=== PATIENT | female | born 1965 | race Caucasian/White ===

== ENCOUNTER 2016-10-12 21:12 | Observation (INO) | payer OTHER ==
[2016-10-12 22:01] LABS: BASOPHIL 0.9 % (0-2.0); MCH 30.5 pg (25.7-33.7); MEAN CELL VOLUME 92.7 fl (80-96); MEAN PLT VOLUME 8.6 fl (7.5-11.1); NEUTROPHILS 44.4 % (42.8-82.8); PLATELET COUNT 153 K/MM3 (134-434); RDW 14.2 % (11.6-15.6); WHITE BLOOD COUNT 4.9 K/mm3 (4.0-10.0)
[2016-10-12] MEDS ORDERED: ASPIRIN 81 MG CHEWABLE TABLETS PO ONE (22:03)
[2016-10-12] MEDS ORDERED: NITROGLYCERIN SUBLINGUAL 1/150 0.4 MG TAB SL ONE (22:03)
[2016-10-12 22:17] LABS: INR 1.1 (0.82-1.09); PROTHROMBIN TIME (PATIENT) 12.1 SEC (9.98-11.88)
[2016-10-12 22:20] LABS: ACTIVATED PTT 34.1 SECONDS (26.9-34.4)
[2016-10-12] MEDS ORDERED: ASPIRIN 81 MG CHEWABLE TABLETS ONE (22:23)
[2016-10-12] MEDS ORDERED: NITROGLYCERIN SUBLINGUAL 1/150 0.4 MG TAB ONE (22:24)
[2016-10-12 22:27] LABS: ALBUMIN 3.9 g/dl (3.4-5.0); ANION GAP 9 (8-16); CALCIUM 9.3 mg/dL (8.5-10.1); CO2 28 mmol/L (21-32); CREATININE 0.8 mg/dL (0.55-1.02); GLUCOSE,RANDOM 101 mg/dL (74-106); SGOT/AST 29 U/L (15-37); SGPT/ALT 48 U/L (12-78)
[2016-10-12 22:31] LABS: ALK PHOS 94 U/L (45-117); BILIRUBIN,TOTAL 0.6 mg/dL (0.2-1.0); TROPONIN I < 0.02 ng/ml (0.00-0.05)
--- NOTE | 2016-10-12 22:45 | PDOC ---
History of Present Illness - General History Source: Patient Exam Limitations: No Limitations - History of Present Illness Initial Comments: 10/12/16 22:55 The patient is a 51 year old female, with a significant past medical history of HTN and HLD, who presents to the emergency department with chest pain for a week. She describes the pain as a pressure like sensation, localized on the left side of the chest, ranging from mild to moderate, without radiation or modifying factors. She states that her pain was a 10/10 in severity, when she took ASA and S/L Nitro prior to arriving to the ED, lowering her pain to a 8/10 in severity. She denies any radiation but states that walking alleviates the pain. She also reports shortness of breath associated with her chest pain. She notes that she had a similar severe episode 3 weeks ago which resolved on its own. She states that the difference today was that her blood pressure was high, 220/110 prior to arriving to the ED. She notes that she takes 1 baby aspirin a day. She had a stress test in 2012 that was normal and an echo in 2014 that was normal. The patient denies headache and dizziness. Denies fever, chills, nausea, vomit, diarrhea and constipation. Denies dysuria, frequency, urgency and hematuria. Allergies: None Past surgical history: None reported Social history: No alcohol, tobacco or drug use reported PMD - Dr. Cabrera <Tamir Mcintyre - Last Filed: 10/12/16 22:54> - General History Source: Patient, Family Exam Limitations: No Limitations <Chriss Alves - Last Filed: 10/12/16 23:15> - General Chief Complaint: Chest Pain Stated Complaint: CHEST PAIN Time Seen by Provider: 10/12/16 21:25 Past History <Tamir Mcintyre - Last Filed: 10/12/16 22:54> - Past Medical History Anemia: No Asthma: No Cancer: No Cardiac Disorders: No CVA: No COPD: No CHF: No Dementia: No Diabetes: No GI Disorders: No Disorders: No HTN: Yes Hypercholesterolemia: Yes Liver Disease: No Suicide Attempt (Hx): No Seizures: No Thyroid Disease: No - Immunization History Immunization Up to Date: No - Psycho/Social/Smoking Cessation Hx Anxiety: No Suicidal Ideation: No Smoking Status: No Smoking History: Never smoked Number of Cigarettes Smoked Daily: 0 Hx Alcohol Use: No Drug/Substance Use Hx: No Substance Use Type: None Hx Substance Use Treatment: No <Marika Alvesel - Last Filed: 10/12/16 23:15> - Past Medical History Allergies/Adverse Reactions: Allergies Allergy/AdvReac Type Severity Reaction Status Date / Time No Known Allergies Allergy Verified 10/12/16 21:19 Home Medications: Ambulatory Orders Aspirin [ASA -] 81 mg PO DAILY 10/12/16 Lisinopril [Prinivil -] 20 mg PO DAILY 10/12/16 Metoprolol Succinate [Toprol Xl] 50 mg PO DAILY 10/12/16 Nitroglycerin Sublingual [Nitrostat -] 0.4 mg SL ASDIR 10/12/16 Simvastatin [Zocor -] 20 mg PO HS 10/12/16 Review of Systems - Review of Systems Able to Perform ROS?: Yes Comments:: 10/12/16 22:55 GENERAL/CONSTITUTIONAL: No fever or chills. No weakness. HEAD, EYES, EARS, NOSE AND THROAT: No change in vision. No ear pain or discharge. No sore throat. CARDIOVASCULAR: +Chest pain, shortness of breath RESPIRATORY: No cough, wheezing, or hemoptysis. GASTROINTESTINAL: No nausea, vomiting, diarrhea or constipation. GENITOURINARY: No dysuria, frequency, or change in urination. MUSCULOSKELETAL: No joint or muscle swelling or pain. No neck or back pain. SKIN: No rash NEUROLOGIC: No headache, vertigo, loss of consciousness, or change in strength/ sensation. ENDOCRINE: No increased thirst. No abnormal weight change HEMATOLOGIC/LYMPHATIC: No anemia, easy bleeding, or history of blood clots. ALLERGIC/IMMUNOLOGIC: No hives or skin allergy. <Tamir Mcintyre - Last Filed: 10/12/16 22:54> *Physical Exam - Vital Signs Last Vital Signs Temp Pulse Resp BP Pulse Ox 98 F 96 H 18 180/90 98 10/12/16 21:21 10/12/16 21:21 10/12/16 21:21 10/12/16 21:21 10/12/16 21:53 - Physical Exam Comments: 10/12/16 22:55 GENERAL: Awake, alert, and fully oriented, in no acute distress HEAD: No signs of trauma, normocephalic, atraumatic EYES: PERRLA, EOMI, sclera anicteric, conjunctiva clear ENT: Auricles normal inspection, hearing grossly normal, nares patent, oropharynx clear without exudates. Moist mucosa NECK: Normal ROM, supple, no lymphadenopathy, JVD, or masses LUNGS: No distress, speaks full sentences, clear to auscultation bilaterally HEART: Regular rate and rhythm, normal S1 and S2, no murmurs, rubs or gallops, peripheral pulses normal and equal bilaterally. ABDOMEN: Soft, nontender, normoactive bowel sounds. No guarding, no rebound. No masses EXTREMITIES: Normal inspection, Normal range of motion, no edema. No clubbing or cyanosis. NEUROLOGICAL: Cranial nerves II through XII grossly intact. Normal speech, normal gait, no focal sensorimotor deficits SKIN: Warm, Dry, normal turgor, no rashes or lesions noted. <Tamir Mcintyre - Last Filed: 10/12/16 22:54> - Vital Signs Last Vital Signs Temp Pulse Resp BP Pulse Ox 98 F 96 H 18 180/90 98 10/12/16 21:21 10/12/16 21:21 10/12/16 21:21 10/12/16 21:21 10/12/16 21:53 <Chriss Alves - Last Filed: 10/12/16 23:15> Heart Score/ECG Review - History History: Moderately suspicious - Electrocardiogram EKG: Non specific repolarization disturbance - Age Age: 45-65 - Risk Factors Risk Factors Heart Score: Yes Hx Hypercholesterolemia, Yes Hx Hypertension Based on the list above the patient has:: 1-2 risk factors - Troponin Troponin: </= normal limit - Score Heart Score - Total: 4 #1 ECG reviewed & interpreted by me at: 21:25 10/12/16 22:38 NSR 88, left axis deviation, T wave flat III, no std/gu[place], poor R wave progression, QTC 454 msec <Chriss Alves - Last Filed: 10/12/16 23:15> ED Treatment Course - LABORATORY CBC & Chemistry Diagram: 10/12/16 21:50 10/12/16 21:50 - ADDITIONAL ORDERS Additional order review: Laboratory Results 10/12/16 10/12/16 21:50 21:50 INR 1.10 PTT (Actin FS) 34.1 Sodium 142 Potassium 3.8 Chloride 105 Carbon Dioxide 28 Anion Gap 9 BUN 20 H D Creatinine 0.8 D Creat Clearance w eGFR > 60 Random Glucose 101 Calcium 9.3 Total Bilirubin 0.6 D AST 29 D ALT 48 D Alkaline Phosphatase 94 D Creatine Kinase 130 Troponin I < 0.02 B-Natriuretic Peptide 13.91 Total Protein 7.0 Albumin 3.9 10/12/16 21:50 RBC 4.78 MCV 92.7 MCHC 33.0 RDW 14.2 MPV 8.6 Neutrophils % 44.4 D Lymphocytes % 35.9 D Monocytes % 15.8 H Eosinophils % 3.0 Basophils % 0.9 - RADIOLOGY Radiograph Interpretation: 10/12/16 22:54 Chest X-Ray Reviewed by: Dr. Power Bunch Impression: No significant interval change or acute lung disease is present. - Medications Given in the ED: ED Medications Discontinued Medications Generic Name Dose Route Start Last Admin Trade Name Freq PRN Reason Stop Dose Admin Aspirin 162 mg 10/12/16 22:03 10/12/16 22:26 Asa - PO 10/12/16 22:04 162 mg ONCE ONE Administration Nitroglycerin 0.4 mg 10/12/16 22:03 10/12/16 22:26 Nitrostat - SL 10/12/16 22:04 0.4 mg ONCE ONE Administration <Tamir Mcintyre - Last Filed: 10/12/16 22:54> - LABORATORY CBC & Chemistry Diagram: 10/12/16 21:50 10/12/16 21:50 - ADDITIONAL ORDERS Additional order review: Laboratory Results 10/12/16 21:50 INR 1.10 PTT (Actin FS) 34.1 10/12/16 21:50 RBC 4.78 MCV 92.7 MCHC 33.0 RDW 14.2 MPV 8.6 Neutrophils % 44.4 D Lymphocytes % 35.9 D Monocytes % 15.8 H Eosinophils % 3.0 Basophils % 0.9 - RADIOLOGY Radiology Studies Ordered: Category Date Time Status CHEST X-RAY PORTABLE* [RAD] Stat Radiology 10/12/16 21:47 Completed - Medications Given in the ED: ED Medications Discontinued Medications Generic Name Dose Route Start Last Admin Trade Name Freq PRN Reason Stop Dose Admin Aspirin 162 mg 10/12/16 22:03 10/12/16 22:26 Asa - PO 10/12/16 22:04 162 mg ONCE ONE Administration Nitroglycerin 0.4 mg 10/12/16 22:03 10/12/16 22:26 Nitrostat - SL 10/12/16 22:04 0.4 mg ONCE ONE Administration <Chriss Alves - Last Filed: 10/12/16 23:15> Medical Decision Making - Medical Decision Making 10/12/16 22:40 A portion of this note was documented by scribe services under my direction. I have reviewed the details of the note, within reason, and agree with the documentation with the following case summary and management plan written by me. Patient treated in the ED. Nursing notes are reviewed and incorporated into the medical decision-making. Vital signs reviewed. Peripheral IV access obtained by the nurse, laboratory studies are drawn and sent, reviewed and interpreted by myself. Vital Signs Temp Pulse Resp BP Pulse Ox 98 F 96 H 18 180/90 98 10/12/16 21:21 10/12/16 21:21 10/12/16 21:21 10/12/16 21:21 10/12/16 21:53 51 year old female with past medical history of HTN, HLD presents with left sided chest tightness intermittently for 3 weeks. Stated today, she had increasing chest tightness with radiation to left shoulder radiation. Prior chest pains, she had some nausea and vomiting with the chest pain. Not exertional. She taken her husbands nitroglycerin and 81 mg asa and the patient reported moderate relief of symptoms. Stress test 3 years ago, which was negative. Will need to MARIJA. Will give rest of aspirin. ECG, chest xray and admit to the hospital for further evaluation. 10/12/16 23:14 Chest xray reviewed. No acute findings. CBC, BMP 10/12/16 21:50 10/12/16 21:50 CMP Sodium 142 mmol/L (136-145) 10/12/16 21:50 Potassium 3.8 mmol/L (3.5-5.1) 10/12/16 21:50 Chloride 105 mmol/L (98-107) 10/12/16 21:50 Carbon Dioxide 28 mmol/L (21-32) 10/12/16 21:50 Anion Gap 9 (8-16) 10/12/16 21:50 BUN 20 mg/dL (7-18) H D 10/12/16 21:50 Creatinine 0.8 mg/dL (0.55-1.02) D 10/12/16 21:50 Creat Clearance w eGFR > 60 (>60) 10/12/16 21:50 Random Glucose 101 mg/dL (74-106) 10/12/16 21:50 Calcium 9.3 mg/dL (8.5-10.1) 10/12/16 21:50 Total Bilirubin 0.6 mg/dL (0.2-1.0) D 10/12/16 21:50 AST 29 U/L (15-37) D 10/12/16 21:50 ALT 48 U/L (12-78) D 10/12/16 21:50 Alkaline Phosphatase 94 U/L (45-117) D 10/12/16 21:50 Creatine Kinase 130 IU/L (26-192) 10/12/16 21:50 Troponin I < 0.02 ng/ml (0.00-0.05) 10/12/16 21:50 B-Natriuretic Peptide 13.91 pg/ml (5-125) 10/12/16 21:50 Total Protein 7.0 g/dl (6.4-8.2) 10/12/16 21:50 Albumin 3.9 g/dl (3.4-5.0) 10/12/16 21:50 Labs reviewed. Negative troponin. Nitro improved chest pain. Heart score: [address] Mcdonald. She accepts for telemetry observatoin. <Chriss Alves - Last Filed: 10/12/16 23:15> *DC/Admit/Observation/Transfer - Attestations Scribe Attestion: 10/12/16 22:54 Documentation prepared by Tamir Mcintyre, acting as medical staff physician for Chriss Alves MD. <Tamir Mcintyre - Last Filed: 10/12/16 22:54> - Discharge Dispostion Admit: Yes <Chriss Alves - Last Filed: 10/12/16 23:15> Diagnosis at time of Disposition: Chest pain Qualifiers: Chest pain type: unspecified Qualified Code(s): R07.9 - Chest pain, unspecified - Discharge Dispostion Condition at time of disposition: Stable - Referrals Referrals: iGna Cabrera MD [Primary Care Provider] -
--- NOTE | 2016-10-12 23:34 | PN ---
<Apple Rod - Last Filed: 10/13/16 00:25> Teaching Attending Note ATTENDING PHYSICIAN STATEMENT I saw and evaluated the patient. I reviewed the resident's note and discussed the case with the resident. I agree with the resident's findings and plan as documented. SUBJECTIVE: 51 yo F presents with chest pain for 1 week. Patient describes the pain as a left-sided pressure sensation that doesnt radiate. She states that her pain was a 10/10 in severity, when she took ASA and S/L Nitro prior to arriving to the ED, lowering her pain to a 8/10 in severity. Patient also notes associated SOB. She reports having a similar episode 3 weeks ago that resolved itself without medical intervention. She reported to the ED today because her BP was 220/110 prior to arrival. Patient reports she takes 1 baby aspirin daily. PMHx: HTN and HLD OBJECTIVE: Last Vital Signs Temp Pulse Resp BP Pulse Ox 98 F 96 H 18 180/90 98 10/12/16 21:21 10/12/16 21:21 10/12/16 21:21 10/12/16 21:21 10/12/16 21:53 GENERAL: Awake, alert, and fully oriented, in no acute distress HEENT: Atraumatic. PERRLA, EOMI. Moist mucosa. No JVD LUNGS: No distress, speaks full sentences, clear to auscultation bilaterally HEART: Regular rate and rhythm, normal S1 and S2, no murmurs, rubs or gallops, peripheral pulses normal and equal bilaterally. ABDOMEN: Soft, nontender, normoactive bowel sounds. No guarding, no rebound. No masses EXTREMITIES: Normal inspection, Normal range of motion, no edema. No clubbing or cyanosis. NEUROLOGICAL: Cranial nerves II through XII grossly intact. Normal speech, normal gait, no focal sensorimotor deficits SKIN: Warm, Dry, normal turgor, no rashes or lesions noted. CBCD WBC 4.9 K/mm3 (4.0-10.0) D 10/12/16 21:50 RBC 4.78 M/mm3 (3.60-5.2) 10/12/16 21:50 Hgb 14.6 GM/dL (10.7-15.3) D 10/12/16 21:50 Hct 44.3 % (32.4-45.2) D 10/12/16 21:50 MCV 92.7 fl (80-96) 10/12/16 21:50 MCHC 33.0 g/dl (32.0-36.0) 10/12/16 21:50 RDW 14.2 % (11.6-15.6) 10/12/16 21:50 Plt Count 153 K/MM3 (134-434) 10/12/16 21:50 MPV 8.6 fl (7.5-11.1) 10/12/16 21:50 CMP Sodium 142 mmol/L (136-145) 10/12/16 21:50 Potassium 3.8 mmol/L (3.5-5.1) 10/12/16 21:50 Chloride 105 mmol/L (98-107) 10/12/16 21:50 Carbon Dioxide 28 mmol/L (21-32) 10/12/16 21:50 Anion Gap 9 (8-16) 10/12/16 21:50 BUN 20 mg/dL (7-18) H D 10/12/16 21:50 Creatinine 0.8 mg/dL (0.55-1.02) D 10/12/16 21:50 Creat Clearance w eGFR > 60 (>60) 10/12/16 21:50 Calcium 9.3 mg/dL (8.5-10.1) 10/12/16 21:50 Total Bilirubin 0.6 mg/dL (0.2-1.0) D 10/12/16 21:50 AST 29 U/L (15-37) D 10/12/16 21:50 ALT 48 U/L (12-78) D 10/12/16 21:50 Alkaline Phosphatase 94 U/L (45-117) D 10/12/16 21:50 Total Protein 7.0 g/dl (6.4-8.2) 10/12/16 21:50 Albumin 3.9 g/dl (3.4-5.0) 10/12/16 21:50 ASSESSMENT AND PLAN: 51 yo F with a PMHx of HTN and HLD presents with chest pain r/o ACS, most likely unstable angina. 1.) Chest pain r/o ACS. Most likely unstable angina -Toprol 50 mg BID -Echo in AM -Stress test in AM -Cardiology consult -Lipid panel -Nitro sl PRN -Domenic score 2 2.) HTN -Question hypertensive urgency -Labetalol if BP over 200 DVT ppx -SCDs Documentation prepared by Apple Rod, acting as electromedical equipment technician for Mae Mcdonald M.D. <Mae Mcdonald - Last Filed: 10/15/16 00:08> Teaching Attending Note Name of Resident: Jess Glaser
[2016-10-13] MEDS ORDERED: NITROGLYCERIN SUBLINGUAL 1/150 0.4 MG TAB SL PRN (00:15)
--- NOTE | 2016-10-13 00:41 | HP ---
CHIEF COMPLAINT: Chest pain x 1 week PCP: Dr. Rick Adler HISTORY OF PRESENT ILLNESS: History obtained from patient and her daughter 51 year old Ukranian speaking female presented to the ED accompanied by her daughter with chief complaints of chest pain x 1 week. A/c to the patient, chest pain started a week ago, gradually progressing to worse, located on the left side, initially 4/10-->8/10 in intensity, squeezing and pressure type, radiating towards her back in between scapula, associated with nausea and SOB but no vomiting. Denies cough, palpitation. Chest pain aggravates when her plood pressure rises. Yesterday, BP at home was 220/110mmHg, she took Metoprolol 100mg, Nitroglycerine sublingual which decreased the intensity of chest pain and decreased BP. This morning BP at home was 180/90mmHg. With the rise of BP, patient also gets hematoma on her limbs. Also reports to have headache in the occipital area, aggravates when BP rises and is relieved when BP normalizes. Denies blurring of vision, loc, numbness or tingling sensation. Daughter mentions patient visited to the ED in the past for Hypertension but was never hospitalized. Patient reports to have similar episodes in the 1wk of September,, had severe chest pain lasting for about 10-15mins at rest with shortness of breath. Patient didn't seek any medical attention since it resolved at that time. But since then, patient has had chest pain on/off. Daughter mentions patient had holter done 5 yrs ago, echo and stress test done 3 years ago and it was normal. Denies abdominal pain. Bowel/Bladder Normal. Sleep/Appetite Normal. ER course was notable for: (1) CBC, CMP, Troponin x 1 negative (2) EKG (3) Sublingual nitroglycerine, Aspirin 162mg Recent Travel: None PAST MEDICAL HISTORY: Hypertension (Diagnosed 5 yrs ago , Hyperlipidemia) PAST SURGICAL HISTORY: Hysterectomy 3 yrs ago Social History: Smoking: Never smoked Alcohol: Occasional Drugs: No drug use. Family History: Unknown Allergies No Known Allergies Allergy (Verified 10/12/16 21:19) HOME MEDICATIONS: Medication Instructions Recorded Aspirin [ASA -] 81 mg PO DAILY 10/12/16 Lisinopril [Prinivil -] 20 mg PO DAILY 10/12/16 Metoprolol Succinate [Toprol Xl] 50 mg PO DAILY 10/12/16 Nitroglycerin Sublingual 0.4 mg SL ASDIR 10/12/16 [Nitrostat -] Simvastatin [Zocor -] 20 mg PO HS 10/12/16 REVIEW OF SYSTEMS CONSTITUTIONAL: Absent: fever, chills, diaphoresis, generalized weakness, malaise, loss of appetite, weight change HEENT: Absent: rhinorrhea, nasal congestion, throat pain, throat swelling, difficulty swallowing, mouth swelling, ear pain, eye pain, visual changes CARDIOVASCULAR: Present: chest pain Absent: , syncope, palpitations, irregular heart rate, lightheadedness, peripheral edema RESPIRATORY: Absent: cough, shortness of breath, dyspnea with exertion, orthopnea, wheezing, stridor, hemoptysis GASTROINTESTINAL: Absent: abdominal pain, abdominal distension, nausea, vomiting, diarrhea, constipation, melena, hematochezia GENITOURINARY: Absent: dysuria, frequency, urgency, hesitancy, hematuria, flank pain, genital pain MUSCULOSKELETAL: Absent: myalgia, arthralgia, joint swelling, back pain, neck pain SKIN: Absent: rash, itching, pallor HEMATOLOGIC/IMMUNOLOGIC: Absent: easy bleeding, easy bruising, lymphadenopathy, frequent infections ENDOCRINE: Absent: unexplained weight gain, unexplained weight loss, heat intolerance, cold intolerance NEUROLOGIC: Present: headache Absent:focal weakness or paresthesias, dizziness, unsteady gait, seizure, mental status changes, bladder or bowel incontinence PSYCHIATRIC: Absent: anxiety, depression, suicidal or homicidal ideation, hallucinations. PHYSICAL EXAMINATION Vital Signs - 24 hr 10/12/16 10/12/16 21:21 21:53 Temperature 98 F Pulse Rate 96 H Respiratory 18 Rate Blood Pressure 180/90 O2 Sat by Pulse 98 98 Oximetry (%) GENERAL: Patient lying comforbly in bed, Awake, alert, and fully oriented, in no acute distress. HEAD: Normal with no signs of trauma. EYES: EOM intact, no pallor or icterus. EARS, NOSE, THROAT: Ears normal. Moist mucous membranes. NECK: Supple LUNGS: Breath sounds equal, clear to auscultation bilaterally. No wheezes, and no crackles. No accessory muscle use. HEART: Regular rate and rhythm, normal S1 and S2 without murmur, rub or gallop. ABDOMEN: Soft, nontender, not distended, normoactive bowel sounds, no guarding, no rebound, no masses. No hepatomegaly or splenomegaly. MUSCULOSKELETAL: Normal range of motion at all joints. No bony deformities or tenderness. No CVA tenderness. UPPER EXTREMITIES: 2+ pulses, warm, well-perfused. No cyanosis. No clubbing. Cap refill <2 seconds. No peripheral edema. LOWER EXTREMITIES: 2+ pulses, warm, well-perfused. No calf tenderness. No peripheral edema. NEUROLOGICAL: Cranial nerves II-XII intact. Normal speech. Gait not observed. PSYCHIATRIC: Cooperative. Good eye contact. Appropriate mood and affect. SKIN: Warm, dry, normal turgor, no rashes or lesions noted. Laboratory Results - last 24 hr 10/12/16 10/12/16 10/12/16 21:50 21:50 21:50 WBC 4.9 D RBC 4.78 Hgb 14.6 D Hct 44.3 D MCV 92.7 MCHC 33.0 RDW 14.2 Plt Count 153 MPV 8.6 Neutrophils % 44.4 D Lymphocytes % 35.9 D Monocytes % 15.8 H Eosinophils % 3.0 Basophils % 0.9 INR 1.10 PTT (Actin FS) 34.1 Sodium 142 Potassium 3.8 Chloride 105 Carbon Dioxide 28 Anion Gap 9 BUN 20 H D Creatinine 0.8 D Creat Clearance w eGFR > 60 Random Glucose 101 Calcium 9.3 Total Bilirubin 0.6 D AST 29 D ALT 48 D Alkaline Phosphatase 94 D Creatine Kinase 130 Troponin I < 0.02 B-Natriuretic Peptide 13.91 Total Protein 7.0 Albumin 3.9 ASSESSMENT/PLAN: 51 year old Ukranian speaking female with past medical history of Hypertension ( Diagnosed 5 yrs ago , Hyperlipidemia) presented to the ED accompanied by her daughter with chief complaints of chest pain x 1 week. Admitted in Tele # Chest pain: Most likely unstable angina. R/O ACS Patient presented in the ED with severe chest pain at rest, 8/10 in intensity , radiating towards her scapula, squeezing type Troponin x 1 negative, EKG: NSR 88, left axis deviation, T wave flat III, no std/[place], poor R wave progression, QTC 454 msec HEART score 2 (age, risk factor) FERMÍN score 2 (severe angina peisodes in 24 hrs, aspirin use in past 7 days) In the ED, patient was given Sublingual nitroglycerine, Aspirin 162mg. Chest pain improving 8/10---->12/19 Second set of cardiac enzyme ordered at 3am Continuous cardiac monitoring in tele Continue Aspirin 81mg Sublingual nitroglycerine PRN upto 3 doses Cardiology consult placed Echo, stress test, EKG ordered for tomorrow # Hypertensive urgency 2 reading of High BP at home 220/110 which decreased to 180/90 after taking 100mg PO Metoprolol On admission, BP 180/92mmHg now decreasing Continue Metoprolol 50mg BID Lisinopril 20mg Daily Statin 20mg Daily Lipid panel and HbA1c ordered # FEN IV fluids @ 42mls/hr Electrolytes to be repeated this am NPO except PO meds for possible stress test tomorrow # Prophylaxis For GI- Not indicated For DVT- Heparin sq # Code Status- Full code # Dispo: Admitted in Tele. Duration of stay unknown Illness, Investigation and Plan of care explained to the patient and her daughter Ms. Parham. They verbalized understanding. Will discuss with Dr. Mcdonald. Visit type - Emergency Visit Emergency Visit: Yes ED Registration Date: 10/12/16 Care time: The patient presented to the Emergency Department on the above date and was hospitalized for further evaluation of their emergent condition. - New Patient This patient is new to me today: Yes Date on this admission: 10/13/16 - Critical Care Critical Care patient: No
[2016-10-13] MEDS ORDERED: SODIUM CHLORIDE 1,000 ML IV SCH (01:15)
[2016-10-13 01:45] VITALS: BMI 26.3
[2016-10-13 02:23] LABS: TROPONIN I < 0.02 ng/ml (0.00-0.05)
[2016-10-13] MEDS: HEPARIN NA (PORCINE) 5,000 UNITS/ML 1ML VIAL SQ SCH ×2 (06:03→13:30)
[2016-10-13 06:16] LABS: MCH 30.8 pg (25.7-33.7); MCHC 33.2 g/dl (32.0-36.0); MEAN CELL VOLUME 92.8 fl (80-96); PLATELET COUNT 157 K/MM3 (134-434); RDW 13.8 % (11.6-15.6); WHITE BLOOD COUNT 4.9 K/mm3 (4.0-10.0)
[2016-10-13 06:38] LABS: ALBUMIN 3.7 g/dl (3.4-5.0); ANION GAP 8 (8-16); CALCIUM 8.7 mg/dL (8.5-10.1); CO2 30 mmol/L (21-32); GLUCOSE,RANDOM 83 mg/dL (74-106)
[2016-10-13 06:41] LABS: ALK PHOS 75 U/L (45-117); BILIRUBIN,TOTAL 0.8 mg/dL (0.2-1.0); CHOLESTEROL 163 mg/dL (50-200); CREATININE 0.7 mg/dL (0.55-1.02); SGOT/AST 24 U/L (15-37); SGPT/ALT 40 U/L (12-78); TOT PROT 6.6 g/dl (6.4-8.2)
--- NOTE | 2016-10-13 08:44 | PN ---
Progress Note (short form) - Note Progress Note: Cardiology Consult Dictated Multiple RF (HTN/ HL) Atypical Chest pain REC: ASA Echo Stress MIBI Further reccs pending above diagnostics BP control
--- NOTE | 2016-10-13 09:22 | CONS ---
CARDIOLOGY CONSULTATION DATE OF CONSULTATION: DATE OF DICTATION: 10/13/2016 REQUESTED BY: Zi Joe MD HISTORY OF PRESENT ILLNESS: The patient is a 51-year-old female with a past medical history of hypertension, hyperlipidemia status post hysterectomy who presents to the emergency room for an episode of substernal chest pressure, which occurred at rest. She describes as tightness radiating diffusely across the precordium with some associated shortness of breath. No palpitations, no nausea/vomiting or diaphoresis. Her pain occurred at rest yesterday and was similar to an episode she experienced earlier in August at which time she did not seek medical attention. She attributed to anxiety. She denies any exertional symptoms. No exertional chest pain. In fact, she states that she feels better when she exercises. She denies cough, fever, chills. She denies any recent travel. Oxygenation is normal on room air. PAST MEDICAL HISTORY: Her past medical history is significant for hyperlipidemia and hypertension. ALLERGIES: She has no known drug allergies. MEDICATIONS AT HOME: 1. Zocor 20 MG q h.s. 2. Toprol XL 50 mg daily. 3. Lisinopril 20 mg daily. 4. Aspirin 81 mg daily. FAMILY HISTORY: No early coronary disease or sudden cardiac . SOCIAL HISTORY: Non-smoker, works as a housekeeper caregiver. PHYSICAL EXAMINATION: General: Comfortable, in no acute distress. Vital signs: Temperature 98 Fahrenheit, pulse 71/regular. Telemetry has shown sinus rhythm. Initial blood pressure was 180/90, now 114/60. 98% on room air. HEENT: 2+ carotid pulses, no bruits. Heart: S1, S2/regular. No murmurs. Lungs: Chest to auscultation. Abdomen: Soft, nontender. No aortic enlargement. Extremities: Warm with no pitting edema. EKG: Normal sinus rhythm, 72 beats per minute. Leftward axis. Otherwise no acute changes. RADIOGRAPHIC FINDINGS: Chest x-ray was performed, showed no acute lung disease. ASSESSMENT: Multiple risk factors including hypertension and hyperlipidemia with atypical chest pain. RECOMMENDATION: 1. Third cardiac enzyme. 2. Continue aspirin. 3. Blood pressure control. 4. Echocardiogram for assessment of LV function. 5. Nuclear stress test today. 6. Recommendations to follow above diagnostics. Thank you for this consultation. BRENNON KHAN M.D. ERICK/[id number] cc: Zi Joe MD
[2016-10-13 09:30] LABS: TROPONIN I < 0.02 ng/ml (0.00-0.05)
[2016-10-13] MEDS ORDERED: INFLUENZA VACCINE 45 MCG/0.5 ML (MDV 16-17) IM ONE (10:00)
[2016-10-13] MEDS ORDERED: METOPROLOL SUCCINATE 50 MG TAB.SR.24H (FP) PO SCH ×2 (10:00)
[2016-10-13] MEDS ORDERED: ASPIRIN 81 MG CHEWABLE TABLETS PO SCH (10:00)
[2016-10-13] MEDS ORDERED: LISINOPRIL 20 MG TABLET (FP) PO SCH (10:00)
[2016-10-13 14:40] VITALS: BP 105/57; PULSE 78; TEMP 98.4
--- NOTE | 2016-10-13 14:42 | PN ---
Teaching Attending Note Name of Resident: Angela Bernabe ATTENDING PHYSICIAN STATEMENT I saw and evaluated the patient. I reviewed the resident's note and discussed the case with the resident. I agree with the resident's findings and plan as documented. SUBJECTIVE: Patient denies having any chest pain, no shortness of breath, had an stress test done. OBJECTIVE: Vital Signs Temperature 98.4 F 10/13/16 13:00 Pulse Rate 78 10/13/16 13:00 Respiratory Rate 16 10/13/16 13:00 Blood Pressure 105/57 10/13/16 13:00 O2 Sat by Pulse Oximetry (%) 98 10/13/16 07:43 GENERAL: Patient lying comforbly in bed, Awake, alert, and fully oriented, in no acute distress. HEAD: Normal with no signs of trauma. EYES: EOM intact, no pallor or icterus. EARS, NOSE, THROAT: Ears normal. Moist mucous membranes. NECK: Supple, no JVD LUNGS: Breath sounds equal, clear to auscultation bilaterally. No wheezes, and no crackles. No accessory muscle use. HEART: Regular rate and rhythm, normal S1 and S2 without murmur, rub or gallop. ABDOMEN: Soft, nontender, not distended, normoactive bowel sounds, no guarding, no rebound, no masses. No hepatomegaly or splenomegaly. MUSCULOSKELETAL: Normal range of motion at all joints. No bony deformities or tenderness. No CVA tenderness. EXTREMITIES: 2+ pulses, warm, well-perfused. No calf tenderness. No peripheral edema. NEUROLOGICAL: Cranial nerves II-XII intact. Normal speech. Gait not observed. PSYCHIATRIC: Cooperative. Good eye contact. Appropriate mood and affect. SKIN: Warm, dry, normal turgor, no rashes or lesions noted. CBCD WBC 4.9 K/mm3 (4.0-10.0) 10/13/16 05:20 RBC 4.67 M/mm3 (3.60-5.2) 10/13/16 05:20 Hgb 14.4 GM/dL (10.7-15.3) 10/13/16 05:20 Hct 43.4 % (32.4-45.2) 10/13/16 05:20 MCV 92.8 fl (80-96) 10/13/16 05:20 MCHC 33.2 g/dl (32.0-36.0) 10/13/16 05:20 RDW 13.8 % (11.6-15.6) 10/13/16 05:20 Plt Count 157 K/MM3 (134-434) 10/13/16 05:20 MPV 9.0 fl (7.5-11.1) 10/13/16 05:20 CMP Sodium 142 mmol/L (136-145) 10/13/16 05:20 Potassium 4.1 mmol/L (3.5-5.1) 10/13/16 05:20 Chloride 104 mmol/L (98-107) 10/13/16 05:20 Carbon Dioxide 30 mmol/L (21-32) 10/13/16 05:20 Anion Gap 8 (8-16) 10/13/16 05:20 BUN 20 mg/dL (7-18) H 10/13/16 05:20 Creatinine 0.7 mg/dL (0.55-1.02) 10/13/16 05:20 Creat Clearance w eGFR > 60 (>60) 10/13/16 05:20 Random Glucose 83 mg/dL (74-106) 10/13/16 05:20 Calcium 8.7 mg/dL (8.5-10.1) 10/13/16 05:20 Total Bilirubin 0.8 mg/dL (0.2-1.0) D 10/13/16 05:20 AST 24 U/L (15-37) 10/13/16 05:20 ALT 40 U/L (12-78) 10/13/16 05:20 Alkaline Phosphatase 75 U/L (45-117) D 10/13/16 05:20 Total Protein 6.6 g/dl (6.4-8.2) 10/13/16 05:20 Albumin 3.7 g/dl (3.4-5.0) 10/13/16 05:20 CARDIAC ENZYMES Creatine Kinase 101 IU/L (26-192) 10/13/16 05:20 Troponin I < 0.02 ng/ml (0.00-0.05) 10/13/16 05:20 Current Medications Generic Name Dose Route Start Last Admin Trade Name Freq PRN Reason Stop Dose Admin Aspirin 81 mg 10/13/16 10:00 10/13/16 13:29 Asa - PO 81 mg DAILY SACHI Administration Atorvastatin Calcium 10 mg 10/13/16 22:00 Lipitor - PO HS [facility] Heparin Sodium (Porcine) 5,000 unit 10/13/16 06:00 10/13/16 13:30 Heparin - SQ 5,000 unit TID SACHI Administration Sodium Chloride 1,000 mls @ 42 mls/hr 10/13/16 01:15 10/13/16 01:25 Normal Saline - IV 42 mls/hr ASDIR SACHI Administration Lisinopril 20 mg 10/13/16 10:00 10/13/16 13:29 Prinivil PO 20 mg DAILY SACHI Administration Metoprolol Succinate 50 mg 10/13/16 10:00 10/13/16 13:29 Toprol Xl - PO 50 mg BID SACHI Administration Nitroglycerin 0.4 mg 10/13/16 00:15 Nitrostat - SL Q5M PRN FOR CHEST PAIN Medication Instructions Recorded Aspirin [ASA -] 81 mg PO DAILY 10/12/16 Lisinopril [Prinivil -] 20 mg PO DAILY 10/12/16 Metoprolol Succinate [Toprol Xl] 50 mg PO DAILY 10/12/16 Nitroglycerin Sublingual 0.4 mg SL ASDIR 10/12/16 [Nitrostat -] Simvastatin [Zocor -] 20 mg PO HS 10/12/16 ASSESSMENT AND PLAN: Patient is a 51 yo F with a PMHx of HTN and HLD presented to ED. with Acute chest pain . # Acute chest pain ; MO was rulled out by 3 sets of trop.negative , stress test neg.Echo is unremarkable. Patient will be discharged on -Toprol 50 mg BID, lisinopril 20mg po daily, aspirin. #Acute hypertensive Emergency now back to normal, increased torpol to 2x per day ,continue Lisinopril and patient is on Hctz at home continue, also patient was asked to follow up with Primary care doctor closely on every 2 weeks period to have to monitor bp closely Echo and stress test is negative. will discharge the patient home, discussed with , will follow up within in 2 weeks follow up with Primary care within a week no added sodium in the diet to have better control of Blood pressure..
--- NOTE | 2016-10-13 16:17 | DS ---
Physical Exam: SUBJECTIVE: Patient seen and examined. She is feeling good. Denies chest pain, palpitations, SOB, cough, headache, N/V, LOC, dizziness, vision problems. OBJECTIVE: Vital Signs Period Temp Pulse Resp BP Sys/Drummond Pulse Ox Last 24 Hr 98.4 F 70-87 12-18 105-146/56-84 98-98 PHYSICAL EXAM GENERAL: The patient is awake, alert, and fully oriented, in no acute distress. HEAD: Normal with no signs of trauma. EYES: extraocular movements intact, sclera anicteric, conjunctiva clear. ENT: oropharynx clear without exudates, moist mucous membranes. NECK: Trachea midline, full range of motion, supple. LUNGS: Breath sounds equal, clear to auscultation bilaterally, no wheezes, no crackles, no accessory muscle use. HEART: Regular rate and rhythm, S1, S2 without murmur, rub or gallop. ABDOMEN: Soft, nontender, nondistended, normoactive bowel sounds, no guarding, no rebound, no hepatosplenomegaly, no masses. EXTREMITIES: 2+ pulses, warm, well-perfused, no edema. NEUROLOGICAL: Normal speech, gait not observed. PSYCH: Normal mood, normal affect. SKIN: Warm, dry, normal turgor, no rashes or lesions noted. LABS Laboratory Results - last 24 hr 10/13/16 10/13/16 10/13/16 01:50 05:20 05:20 WBC 4.9 RBC 4.67 Hgb 14.4 Hct 43.4 MCV 92.8 MCHC 33.2 RDW 13.8 Plt Count 157 MPV 9.0 Sodium 142 Potassium 4.1 Chloride 104 Carbon Dioxide 30 Anion Gap 8 BUN 20 H Creatinine 0.7 Creat Clearance w eGFR > 60 Random Glucose 83 Hemoglobin A1c % Calcium 8.7 Total Bilirubin 0.8 D AST 24 ALT 40 Alkaline Phosphatase 75 D Creatine Kinase 112 101 Troponin I < 0.02 < 0.02 Total Protein 6.6 Albumin 3.7 Cholesterol 163 10/13/16 10/13/16 05:20 08:45 WBC RBC Hgb Hct MCV MCHC RDW Plt Count MPV Sodium Potassium Chloride Carbon Dioxide Anion Gap BUN Creatinine Creat Clearance w eGFR Random Glucose Hemoglobin A1c % 5.3 Calcium Total Bilirubin AST ALT Alkaline Phosphatase Creatine Kinase Cancelled Troponin I Cancelled Total Protein Albumin Cholesterol HOSPITAL COURSE: Date of Admission:10/12/16 Date of Discharge: 10/13/16 Minutes to complete discharge: 50 Discharge Summary Reason For Visit: CHEST PAIN Current Active Problems Chest pain (Acute) Hospital Course: 51 year old female with past medical history of Hypertension and HDL presented to the ED accompanied by her daughter with chief complaints of chest pain x 1 week. The pain is localized in left chest, pressure like, radiation to back and scapula. It is intermittent, lasts seconds and is 8/10-4/10 in severity. The pain is always associated with elevated BP. She measured that at home and it was 220/110. She states that her blood pressure is elevated for a month. Hospital course; We placed the pt in observation to r/o ACS. She was seen by [facility]. Her troponins were negative x3, ECHO didn't show any acute pathology, EKG: NSR 88, left axis deviation, T wave flat III, no std/[place], poor R wave progression, QTC 454 msec, MIBI test was nl, continuous cardiac monitoring didn't show any acute events, her BP normalized. the pt was given Metoprolol, Lisinopril, ASA, NTG and IVF. She didn't have any more episodes of chest pain in the hospital. She was discharged with recommendation to see her PCP in a week and [facility] as outpatient. Condition: Good - Instructions Diet, Activity, Other Instructions: Please take your medications everyday. We recommend to take Metoprolol two times a day. No other medication changes. Please see your primary care doctor and Dr. Michael in a week. If you have chest pain, palpitations, SOB, dizziness, loss of consciousness come to Emergency Room as soon as possible. Referrals: Sg Michael MD [Staff Physician] - Gina Cabrera MD [Primary Care Provider] - Disposition: HOME - Home Medications Comprehensive Discharge Medication List: Ambulatory Orders Aspirin [ASA -] 81 mg PO DAILY 10/12/16 Lisinopril [Prinivil -] 20 mg PO DAILY 10/12/16 Nitroglycerin Sublingual [Nitrostat -] 0.4 mg SL ASDIR 10/12/16 Simvastatin [Zocor -] 20 mg PO HS 10/12/16 Hydrochlorothiazide [Hctz -] 25 mg PO DAILY 10/13/16 Metoprolol Succinate [Toprol XL -] 50 mg PO BID #60 tab.sr.24h 10/13/16 Problem List - Problems (1) Chest pain Code(s): R07.9 - CHEST PAIN, UNSPECIFIED Qualifiers: Chest pain type: unspecified Qualified Code(s): R07.9 - Chest pain, unspecified (2) Hypertension Code(s): I10 - ESSENTIAL (PRIMARY) HYPERTENSION (3) Hyperlipidemia Code(s): E78.5 - HYPERLIPIDEMIA, UNSPECIFIED This patient is new to me today: Yes Date on this admission: 10/13/16 Emergency Visit: Yes ED Registration Date: 10/12/16 Care time: The patient presented to the Emergency Department on the above date and was hospitalized for further evaluation of their emergent condition. Critical Care patient: No - Discharge Referral Referred to [facility] Med P.C.: No
--- NOTE | 2016-10-13 17:26 | EKG ---
Test Reason : Blood Pressure : / mmHG Vent. Rate : 067 BPM Atrial Rate : 067 BPM P-R Int : 170 ms QRS Dur : 074 ms QT Int : 432 ms P-R-T Axes : 033 -30 013 degrees QTc Int : 456 ms POOR DATA QUALITY, INTERPRETATION MAY BE ADVERSELY AFFECTED NORMAL SINUS RHYTHM LEFT AXIS DEVIATION ABNORMAL ECG WHEN COMPARED WITH ECG OF 12-OCT-2016 21:21, NO SIGNIFICANT CHANGE WAS FOUND Confirmed by MABEL RUTH, KAM ([id number]) on 10/13/2016 5:26:11 PM Referred By: Confirmed By:KAM MONROE MD
--- NOTE | 2016-10-13 17:33 | EKG ---
Test Reason : Blood Pressure : / mmHG Vent. Rate : 088 BPM Atrial Rate : 088 BPM P-R Int : 156 ms QRS Dur : 080 ms QT Int : 376 ms P-R-T Axes : 050 -52 030 degrees QTc Int : 454 ms NORMAL SINUS RHYTHM LEFT AXIS DEVIATION LOW VOLTAGE QRS ABNORMAL ECG WHEN COMPARED WITH ECG OF 22-JUL-2014 20:00, T WAVE AMPLITUDE HAS DECREASED IN ANTERIOR LEADS Confirmed by KAM MONROE MD ([id number]) on 10/13/2016 5:33:03 PM Referred By: Confirmed By:KAM MONROE MD
[2016-10-13] MEDS ORDERED: ATORVASTATIN CA 10 MG TABLET (FP) PO SCH (22:00)
== END 2016-10-13 16:30 | disposition home or self-care (01) ==
LOC: JER 21:12 → JICU 23:58
PROVIDERS: ADMIT Internal Medicine; ATTEND Internal Medicine
DX: R07.89 Other chest pain (principal); E78.5 Hyperlipidemia, unspecified; I16.0 Hypertensive urgency
CPT/HCPCS: 36415; 71010-TC; 78452-TC; 80053; 82465; 82550; 83036; 83880; 84484; 85025; 85027; 85610; 85730; 93005; 93010; 93017; 93306-TC; 99284-25; A9502; C1887; G0378; J1644; Q2037

== ENCOUNTER 2024-02-17 21:46 | Emergency (ER) | payer OTHER ==
[2024-02-17 21:54] VITALS: BP 130/83; PULSE 87; RESP 19; TEMP 98.6; BMI 26.6
[2024-02-17] MEDS ORDERED: LOPERAMIDE HCL 2 MG CAPSULE ONE (23:16)
[2024-02-17] MEDS: LOPERAMIDE HCL 2 MG CAPSULE PO ONE (23:20)
[2024-02-17] MEDS: SODIUM CHLORIDE 1,000 ML IV STA (23:20)
[2024-02-17 23:25] LABS: BASO % 0.2 % (0-2.0); EOS % 0.9 % (0-4.5); HEMATOCRIT 40.7 % (32.4-45.2); HEMOGLOBIN 13.9 GM/dL (10.7-15.3); LYMPH % 7.5 % (8-40); MCH 30.9 pg (25.7-33.7); MCHC 34.2 g/dl (32.0-36.0); MEAN CELL VOLUME 90.2 fl (80-96); MEAN PLT VOLUME 8.1 fl (7.5-11.1); MONO % 8.4 % (3.8-10.2); PLATELET COUNT 164 10^3/uL (134-434); RBC 4.51 M/mm3 (3.60-5.2); RDW 14.5 % (11.6-15.6); WHITE BLOOD COUNT 6.2 K/mm3 (4.0-10.0)
[2024-02-17 23:48] LABS: POTASSIUM 3.7 mmol/L (3.5-5.1)
[2024-02-17 23:50] LABS: CALCIUM 8.2 mg/dL (8.5-10.1)
[2024-02-17 23:51] LABS: ALBUMIN 3.7 g/dl (3.4-5.0); BLOOD UREA NITROGEN 11.6 mg/dL (7-18)
[2024-02-17 23:54] LABS: CREATININE 0.7 mg/dL (0.55-1.3); PHOSPHOROUS 2.9 mg/dL (2.5-4.9)
[2024-02-17 23:55] LABS: BILIRUBIN,TOTAL 1.4 mg/dL (0.2-1)
[2024-02-18 00:33] LABS: EPI CELLS 11 /uL (0-25.1); HYALINE CASTS 0 /uL (0-3.1); PH,URINE 5.5 (5.0-8.0); URINE APPEARANCE CLEAR; URINE BACTERIA 65 /uL (0-1359); URINE BILIRUBIN NEGATIVE (NEGATIVE); URINE COLOR YELLOW; URINE GLUCOSE (UA) NEGATIVE (NEGATIVE); URINE KETONE NEGATIVE (NEGATIVE); URINE LEUK ESTERASE 1+ (NEGATIVE); URINE NITRITE NEGATIVE (NEGATIVE); URINE PROTEIN NEGATIVE (NEGATIVE); URINE RBC 10 /uL (0-23.9); URINE UROBILINOGEN 0.2 mg/dL (0.2-1.0); URINE WBC 21 /uL (0-25.8)
== END 2024-02-18 01:22 | disposition home or self-care (01) ==
LOC: JER 21:46
PROC: 3E0337Z Introduction of Electrolytic and Water Balance Substance into Peripheral Vein, Percutaneous Approach (ICD-10-PCS; principal; 2024-02-17)
DX: R19.7 Diarrhea, unspecified (principal); R11.0 Nausea; M54.50 Low back pain, unspecified; R50.9 Fever, unspecified; Z20.822 Contact with and (suspected) exposure to COVID-19
CPT/HCPCS: 0241U-QW; 36415; 80053; 81003; 83735; 84100; 85025; 87086; 93005; 93010; 99284-25

== ENCOUNTER 2024-06-25 06:29 | Day surgery (SDC) | payer OTHER ==
[2024-06-20 14:45] VITALS: BMI 26.4
[2024-06-25] MEDS ORDERED: BUPIVACAINE HCL/PF 0.25% (2.5MG/ML) 10 ML VIAL ONE (07:27)
[2024-06-25] MEDS ORDERED: EPINEPHrine 1:1,000 1,000 MCG/ML ML ONE (07:27)
[2024-06-25] MEDS ORDERED: PROPOFOL 40 ML ONE (08:06)
[2024-06-25] MEDS ORDERED: KETOROLAC TROMETHAMINE 30 MG/1 ML VIAL ONE (08:06)
[2024-06-25] MEDS ORDERED: MIDAZOLAM HCL 2 MG/2 ML SINGLE DOSE VIAL ONE (08:06)
[2024-06-25] MEDS ORDERED: ONDANSETRON 4 MG/2 ML VIAL ONE (08:06)
[2024-06-25] MEDS ORDERED: SUCCINYLCHOLINE CHLORIDE 200 MG/10 ML SYRINGE ONE (08:06)
[2024-06-25] MEDS ORDERED: DEXAMETHASONE SOD PHOSPHATE 4 MG/1 ML VIAL ONE (08:06)
[2024-06-25] MEDS ORDERED: ceFAZolin SODIUM 1 GM VIAL ONE (08:22)
[2024-06-25] MEDS ORDERED: oxyCODONE HCL 5 MG TABLET PO PRN (09:36)
[2024-06-25] MEDS: ACETAMINOPHEN 500 MG TABLET (FP) PO ONE (09:50)
[2024-06-25] MEDS ORDERED: ACETAMINOPHEN 500 MG TABLET (FP) ONE (09:57)
[2024-06-25 12:22] VITALS: BP 130/72; PULSE 68; RESP 18; TEMP 97.1
== END 2024-06-25 10:28 | disposition home or self-care (01) ==
LOC: FASU 06:29
PROVIDERS: ATTEND Orthopaedic Surgery Sports Medicine
PROC: 0SBC4ZZ Excision of Right Knee Joint, Percutaneous Endoscopic Approach (ICD-10-PCS; 2024-06-25)
PROC: 0SBC4ZZ Excision of Right Knee Joint, Percutaneous Endoscopic Approach (ICD-10-PCS; principal; 2024-06-25 08:35)
DX: S83.241A Other tear of medial meniscus, current injury, right knee, initial encounter (principal); M65.861 Other synovitis and tenosynovitis, right lower leg; M94.261 Chondromalacia, right knee; X58.XXXA Exposure to other specified factors, initial encounter; Y92.9 Unspecified place or not applicable; Y93.9 Activity, unspecified
CPT/HCPCS: 94760